=== PATIENT | female | born 2000 | race Asian ===

== ENCOUNTER 2022-01-08 04:20 | Emergency (ER) | payer OTHER, SELFPAY ==
[2022-01-08 04:23] VITALS: BP 131/84; PULSE 90; RESP 17; TEMP 36.1; O2SAT 100
[2022-01-08 04:45] LABS: Basophils Percent Auto 0.4 % (0.2-1.2); Eosinophils Absolute Auto 0.1 K/mm3 (0-0.3); Eosinophils Percent Auto 1.4 % (0-4.4); Hematocrit 41.2 % (37.0-47.0); Hemoglobin 14.2 g/dL (12.0-15.0); Immature Granulocyte Absolute 0.01 K/mm3 (0.00-0.031); Immature Granulocyte Percent A 0.2 % (0-0.5); Lymphocytes Absolute Auto 0.55 K/mm3 (0.9-3.2); Lymphocytes Percent Auto 9.7 % (18.3-44.2); Mean Corpuscular HGB Conc 34.5 g/dl (32-36); Mean Corpuscular Hemoglobin 32.2 pg (26-34); Mean Corpuscular Volume 93.4 fl (80-100); Mean Platelet Volume 9.1 fl (7.4-10.4); Monocytes Absolute Auto 0.4 K/mm3 (0.1-0.6); Neutrophils Absolute Auto 4.6 K/mm3 (1.3-6.7); Neutrophils Percent Auto 81.3 % (45.5-73.1); Platelet Count Result 225 k/mm3 (150-375); Red Blood Count 4.41 M/mm3 (4.2-5.4); Red Cell Distribution Width 11.5 % (11.5-14.5); White Blood Count 5.7 K/mm3 (4.5-10.0)
[2022-01-08] MEDS: ONDANSETRON INJ 4 MG/2 ML VIAL IV PUSH (04:45)
[2022-01-08] MEDS: SODIUM CHLORIDE 0.9% IV 1,000 ML 999 ML IV CONT (04:46)
[2022-01-08 04:58] LABS: Alanine Aminotransferase 12 U/L (4-35); Albumin Level 4.7 g/dL (3.5-5.1); Alkaline Phosphatase 49 U/L (38-126); Anion Gap 8 mmol/L (8-16); Aspartate Amino Transferase 25 U/L (14-36); Bilirubin,Total 0.7 mg/dL (0.2-1.3); Blood Urea Nitrogen 16 mg/dL (7-17); Calcium 8.7 mg/dL (8.4-10.2); Carbon Dioxide 27 mmol/L (22-30); Chloride 105 mmol/L (98-107); Estimated Glomerular Filt Rate > 60; Glucose 106 mg/dL (65-110); Lipase 96 U/L (23-300); Potassium 3.7 mmol/L (3.4-5.0); Sodium 140 mmol/L (137-145)
[2022-01-08 05:25] LABS: Add Urine Microscopic? YES; Appearance Urine Clear (Clear); Bacteria Urine Trace /hpf; Bilirubin Urine Negative (Negative); Blood Urine Negative (Negative); Color Urine Yellow (Yellow); Glucose Urine UA Negative (Negative); Ketones Urine 1+ mg/dL (Negative); Leukocyte Esterase Ur Negative LEU/UL (Negative); Nitrate Urine Negative (Negative); Protein Urine Negative (Negative); RBC Urine 0-2 /hpf (0-2); Specific Grav Ur 1.024 (1.001-1.035); Squamous Epithelial Cell Urine Moderate /hpf (Few); Transitional Epi Cells Urine Rare /hpf (None Seen); Urobilinogen Urine Negative mg/dL (<2.0); WBC Urine 0-3 /hpf
--- NOTE | 2022-01-08 05:26 | ED.GENADULT ---
HPI - General Adult General Chief complaint: Nausea/Vomiting/Diarrhea Stated complaint: N/V/D, with abd pain Time Seen by Provider: 01/08/22 04:28 Source: patient and RN notes reviewed Mode of arrival: ambulatory Limitations: no limitations History of Present Illness HPI narrative: 21-year-old female presenting to the emergency department for evaluation of nausea vomiting and diarrhea. Patient went to dinner approximately 8 PM and had onset of a nausea vomiting diarrhea at 11 PM. Patient's boyfriend also ate similar food but does not have similar symptoms. Patient denies any other sick contacts. Patient did have some lower abdominal cramping but denies any current abdominal pain. Related Data Allergies Allergy/AdvReac Type Severity Reaction Status Date / Time No Known Allergies Allergy Verified 01/08/22 04:25 Review of Systems Review of Systems: CONSTITUTIONAL: Denies fever, chills, or sweats. EYES: Denies visual changes, redness, or discharge. ENT: Denies rhinorrhea, congestion, sore throat, or otalgia. CARDIOVASCULAR: Denies chest pain, palpitations, or edema. RESPIRATORY: Denies cough or dyspnea. GASTROINTESTINAL: see HPI GENITOURINARY: Denies dysuria or hematuria. SKIN: Denies rash or itching. MUSCULOSKELETAL: Denies back pain, joint pain, or myalgia. NEUROLOGIC: Denies headache, numbness, or weakness. All systems reviewed & are unremarkable except as noted in HPI and below Exam Narrative: APPEARANCE: Well appearing, no pain, no distress, well-nourished. HEAD: normocephalic, atraumatic. EYES: PERRLA/EOMI, conjunctivae clear. NOSE: Normal no drainage NECK: Supple. No adenopathy, no masses. RESPIRATORY: Airway patent, respirations nonlabored. Clear to auscultation bilaterally, no rales, rhonchi, wheezing. CARDIOVASCULAR: Regular rate and rhythm without murmurs rubs or gallops. ABDOMINAL: Diffuse abdominal pain. Normal bowel sounds. MUSCULOSKELETAL: Moves all extremities. Strength/ROM intact, No edema, No calf tenderness. NEURO: Alert. Cranial nerves II through XII intact. Good gait. Good coordination SKIN: Warm, dry. Normal Color Course Reevaluation(s) Reevaluation #1: Patient feels improved compared to arrival but does still have some residual nausea and abdominal cramping. On second reexamination patient feels further improved. Patient is requesting discharge to home. Patient was updated the results of her labs and treatment for home. Suspect gastroenteritis as the underlying etiology. Vital Signs Vital signs: Vital Signs Temperature 96.9 F L 01/08/22 04:23 Pulse Rate 90 01/08/22 04:23 Respiratory Rate 17 01/08/22 04:23 Blood Pressure 131/84 01/08/22 04:23 Pulse Oximetry 100 01/08/22 04:23 Temperature 96.9 F L 01/08/22 04:23 Pulse Rate 72 01/08/22 06:27 Respiratory Rate 16 01/08/22 06:27 Blood Pressure 123/74 01/08/22 06:27 Pulse Oximetry 100 01/08/22 06:27 Medical Decision Making Vital Signs Vital Signs: Vital Signs Temperature 96.9 F L 01/08/22 04:23 Pulse Rate 90 01/08/22 04:23 Respiratory Rate 17 01/08/22 04:23 Blood Pressure 131/84 01/08/22 04:23 Pulse Oximetry 100 01/08/22 04:23 Temperature 96.9 F L 01/08/22 04:23 Pulse Rate 72 01/08/22 06:27 Respiratory Rate 16 01/08/22 06:27 Blood Pressure 123/74 01/08/22 06:27 Pulse Oximetry 100 01/08/22 06:27 Lab Data Lab results reviewed: Yes I reviewed the patient's lab results. Result diagrams: 01/08/22 04:41 01/08/22 04:41 Labs: Lab Results 01/08/22 01/08/22 01/08/22 Range/Units 04:41 04:41 05:15 WBC 5.7 (4.5-10.0) K/mm3 RBC 4.41 (4.2-5.4) M/mm3 Hgb 14.2 (12.0-15.0) g/dL Hct 41.2 (37.0-47.0) % MCV 93.4 (80-100) fl MCH 32.2 (26-34) pg MCHC 34.5 (32-36) g/dl RDW 11.5 (11.5-14.5) % Plt Count 225 (150-375) k/mm3 MPV 9.1 (7.4-10.4) fl Immature Gran % (Auto) 0.2 (0-0.5) % Neut % (Auto) 81.3
[2022-01-08] MEDS: PANTOPRAZOLE SODIUM IV 40 MG VIAL IV PUSH (05:56)
[2022-01-08] MEDS: METOCLOPRAMIDE HCL INJ 10 MG/2 ML VIAL IV PUSH (05:58)
[2022-01-08 06:02] VITALS: BP 117/77; PULSE 92; RESP 16; O2SAT 97
[2022-01-08 06:27] VITALS: BP 123/74; PULSE 72; RESP 16; O2SAT 100
== END 2022-01-08 06:28 | disposition home or self-care (01) ==
PROVIDERS: Emergency Provider Emergency Medicine
DX: R11.2 Nausea with vomiting, unspecified (principal); R19.7 Diarrhea, unspecified
CPT/HCPCS: 36415; 80053; 81001; 81025; 83690; 85025; 87804; 96361; 96365; 96375; 99284; C9113; J0131; J2405; J2765; J7030